=== PATIENT | female | born 1970 | race Caucasian/White ===

== ENCOUNTER 2019-09-25 16:29 | Emergency (ER) | payer OTHER ==
[~2019-09-25] VITALS: Ht 167.6 cm; Wt 65.0 kg
[2019-09-25 16:30] VITALS: BP 124/89
--- NOTE | 2019-09-25 16:34 | NUR ---
PT BIB EMS FOR INTOXICATION. PT WAS AT [facility] BUT TOO DRUNK TO BE ADMITTED THERE. PT BLEW .40 FOR EMS. PT PLEASANT, A&OX4. VSS. NO FALLS. DENIES COUGH, SOB.
--- NOTE | 2019-09-25 17:54 | NUR ---
PT SLEEPING. VSS, SIDE RAILS X2
--- NOTE | 2019-09-25 18:04 | NUR ---
MEAL TRAY ORDERED FOR PT.
[2019-09-25] MEDS ORDERED: CHLORDIAZEPOXIDE 25 MG CAPSULE ONE (19:43)
--- NOTE | 2019-09-25 19:45 | NUR ---
JACK RN: PT MEDICATED PER [facility]. 5 RIGHTS ADDRESSED.
[2019-09-25] MEDS ORDERED: CHLORDIAZEPOXIDE 25 MG CAPSULE PO ONE (20:00)
--- NOTE | 2019-09-25 20:36 | NUR ---
Patient/Caregiver given discharge instructions and they have confirmed that they understand the instructions. Patient ambulatory with steady gait. PT PROVIDED WITH [facility]
== END 2019-09-25 20:38 | disposition home or self-care (01) ==
LOC: ED 17:57
DX: F10.220 Alcohol dependence with intoxication, uncomplicated (principal); J45.909 Unspecified asthma, uncomplicated; Z72.9 Problem related to lifestyle, unspecified; Y90.0 Blood alcohol level of less than 20 mg/100 ml
CPT/HCPCS: 99283